=== PATIENT | female | born 1985 | race African-American/Black ===

== ENCOUNTER 2016-11-30 13:49 | Outpatient (CLI) | payer OTHER ==
--- NOTE | 2016-11-30 17:42 | MRI ---
EXAM: MRI CERVICAL SPINE WITHOUT CONTRAST 11/30/16 HISTORY: Cervical disc degeneration. Left sided numbness times a few months. COMPARISON: None. TECHNIQUE: Cervical spine MRI is performed without contrast. Multisequential, multiplanar imaging is performed. FINDINGS: Straightening of the normal cervical lordosis is noted. Cervical spine vertebral body height is main tained. No fracture. No significant STIR hyperintensity to suggest vertebral body edema or ligamento us injury. There is appropriate T1 marrow signal intensity of the cervical vertebrae. Visualized bra in parenchyma, cervicomedullary junction, cervical cord, and the upper thoracic cord has a normal si zed and signal intensity. C2-C3: No significant disc osteophyte complex. No significant central canal stenosis. Neural foramin a are patent. C3-C4: No significant disc osteophyte complex. No significant central canal stenosis. Neural foramin a are patent. C4-C5: No significant disc osteophyte complex. No significant central canal stenosis. Neural foramin a are patent. C5-C6: No significant disc osteophyte complex. No significant central canal stenosis. Neural foramin a are patent. C6-C7: No significant disc osteophyte complex. No significant central canal Stenosis. Neural foramina are patent. C7-T1: No significant disc osteophyte complex. No significant central canal stenosis. Neural foramin a are patent. IMPRESSION: No significant central canal stenosis or foraminal narrowing. POS: [facility]
--- NOTE | 2016-11-30 18:11 | MRI ---
EXAM: MRI LUMBAR SPINE WITHOUT CONTRAST 11/30/16 HISTORY: Lumbar disc degeneration. Left sided numbness times a few months. COMPARISON: 11/07/14. TECHNIQUE: Lumbar spine MRI is performed without intravenous gadolinium administration. Multisequential, multip lanar imaging is performed. FINDINGS: Appropriate T1 marrow signal of the lumbar vertebrae. Lumbar spine vertebral body height is maintain ed. No fracture. No significant STIR hyperintensity to suggest vertebral body edema or ligamentous i njury. Symmetric signal intensity of the psoas muscles. Appropriate signal intensity in the visualized blane d organs. The conus medullaris terminates at the mid L1 level. T12-L1: Adequate disc hydration. No significant central canal stenosis. Neural foramina are patent. L1-L2: Adequate disc hydration. No significant central canal stenosis. Neural foramina are patent. L2-L3: Adequate disc hydration. No significant central canal stenosis. Neural foramina are patent. L3-L4: Adequate disc hydration. No significant central canal stenosis. Neural foramina are patent. L4-L5: Adequate disc hydration. No significant central canal stenosis. Neural foramina are patent. L5-S1: Adequate disc hydration. No significant central canal stenosis. Neural foramina are patent. IMPRESSION: No evidence of central canal stenosis. No significant foraminal narrowing. When compared to the prio r exam, no significant change. POS: [facility]
== END 2016-11-30 13:50 | disposition home or self-care (01) ==
LOC: TBSIIMAG 13:49
PROVIDERS: ATTEND Neurological Surgery
DX: M50.30 Other cervical disc degeneration, unspecified cervical region (principal); M51.36 Other intervertebral disc degeneration, lumbar region
CPT/HCPCS: 72141; 72148

== ENCOUNTER 2017-02-02 10:44 | Outpatient (CLI) | payer OTHER ==
[2017-02-02] MEDS ORDERED: Iopamidol 300 61% 30 ML VIAL ONE (12:29)
--- NOTE | 2017-02-02 13:36 | RAD ---
HYSTEROSALPINGOGRAM: HISTORY: Infertility. Hysterosalpingogram. Z31.41. RADIATION DOSIMETRY: One minutes of fluoroscopy and AK of 214 mGy. TECHNIQUE: Informed consent was obtained from the patient. A speculum was introduced into the vaginal canal. T he cervical os was localized. This cervical os was cleansed using a Betadine solution. HSG catheter was placed without difficulty into the uterine canal. The balloon was deployed. A total of approxi mately 10 mL of sterile iodinated contrast was introduced into the uterine canal. The uterine cavity is unremarkable with no evidence of masses or lesions. Both fallopian tubes are visualized and are patent with bilateral free spill seen. No significant abnormalities noted otherwise. IMPRESSION: Normal hysterosalpingogram with no evidence of abnormality seen in the uterine canal or evidence of f allopian tube obstruction. There is bilateral free spill seen. POS: [facility]
== END 2017-02-02 10:45 | disposition home or self-care (01) ==
LOC: RAD 10:44
PROVIDERS: ATTEND Obstetrics & Gynecology
DX: Z31.41 Encounter for fertility testing (principal)
CPT/HCPCS: 58340; 74740

== ENCOUNTER 2017-05-17 20:22 | Emergency (ER) | payer OTHER ==
[2017-05-17] MEDS ORDERED: Acetaminophen/Codeine 30-300mg Tablet ONE (20:33)
[2017-05-17] MEDS ORDERED: Lidocaine 1% PF 5 ML VIAL ONE (20:33)
== END 2017-05-17 20:58 | disposition home or self-care (01) ==
LOC: SCSER 20:22
DX: L02.412 Cutaneous abscess of left axilla (principal); D64.9 Anemia, unspecified; K50.90 Crohn's disease, unspecified, without complications; I10 Essential (primary) hypertension; K21.9 Gastro-esophageal reflux disease without esophagitis; Z79.899 Other long term (current) drug therapy
CPT/HCPCS: 10060; J2001

== ENCOUNTER 2017-05-19 12:21 | Emergency (ER) | payer OTHER | END 2017-05-19 12:55 | disposition home or self-care (01) | LOC: SCSER 12:21 | DX: Z48.817 Encounter for surgical aftercare following surgery on the skin and subcutaneous tissue (principal); Z48.01 Encounter for change or removal of surgical wound dressing; K50.90 Crohn's disease, unspecified, without complications; I10 Essential (primary) hypertension; K21.9 Gastro-esophageal reflux disease without esophagitis; Z79.899 Other long term (current) drug therapy | CPT/HCPCS: 99282 ==

== ENCOUNTER 2017-11-28 15:56 | Emergency (ER) | payer OTHER ==
[2017-11-28] MEDS ORDERED: Metoclopramide HCl 10 MG/2 ML VIAL ONE (16:39)
[2017-11-28] MEDS ORDERED: diphenhydrAMINE 12.5 MG/5 ML UDCUP ONE (16:39)
[2017-11-28 16:45] LABS: #Basophils 0.1 thou/uL (0.0-0.2); #Eosinphils 0.1 thou/uL (0.0-0.7); #Lymphocytes 1.6 thou/uL (1.20-3.40); #Monocytes 0.4 thou/uL (0.11-0.59); #Neutrophils 3.2 thou/uL (1.40-6.50); %Basophils 2.3 % (0.0-1.0); %Eosinophils 1.2 % (0.0-10.0); %Monocytes 7.1 % (0.0-10.0); %Neutrophils 60.4 % (42.0-75.0); Hemoglobin 12.5 g/dL (12.0-16.0); Mean Corpuscular HGB CONC 33.8 g/dL (32.0-36.0); Mean Corpuscular Hemoglobin 29.7 pg (27.0-31.0); Mean Platelet Volume 8.4 fL (7.4-10.4); Platelet Count 384 thou/uL (130-400); RBC Distribution Width 13.8 % (11.5-14.5); White Blood Cell (WBC) Count 5.3 thou/uL (4.8-10.8)
[2017-11-28] MEDS ORDERED: diphenhydrAMINE 25 MG CAP ONE (16:46)
[2017-11-28 17:04] LABS: Anion Gap 10 mmol/L (10-20); BUN (Urea Nitrogen) 10 mg/dL (7.0-18.7); Calc. Creatinine Clearance 0 mL/min (70-130); Calcium 9.1 mg/dL (7.8-10.44); Carbon Dioxide 24 mmol/L (22-29); Chloride 109 mmol/L (98-107); Estimated GFR-MDRD Greater than 90; Glucose 85 mg/dL (70-105); Potassium 3.7 mmol/L (3.5-5.1); Sodium 139 mmol/L (136-145)
[2017-11-28 17:12] LABS: CKMB 0.9 ng/mL (0-6.6); Troponin I Less than 0.010 ng/mL (< 0.028)
[2017-11-28 18:12] LABS: BHCG - Serum Negative (NEGATIVE); Pregs Control Background? CLEAR/WHITE (CLR/WHITE); Pregs Control Bar Appear? YES (CONTROL BAR)
[2017-11-28] MEDS ORDERED: Ketorolac Tromethamine 30 MG/ML VIAL ONE (18:15)
--- NOTE | 2017-11-28 18:37 | CT ---
CT BRAIN 11/28/17 PROVIDED CLINICAL HISTORY: Headache. FINDINGS: Comparison 07/16/14. The ventricular system appears normal in size and morphology. There is no evidence for intracranial h emorrhage, or mass effect. The extracranial soft tissues and osseous structures demonstrate unremarka ble CT appearance. IMPRESSION: No evidence for intracranial hemorrhage or mass effect. POS: [facility]
--- NOTE | 2017-11-28 18:42 | RAD ---
TWO VIEWS CHEST: 11/28/17 PROVIDED CLINICAL HISTORY: Chest pain. COMPARISON: 03/11/16. The cardiac and mediastinal silhouette is within normal limits. The lungs appear clear. No pleural fl uid or pneumothorax apparent. IMPRESSION: No evidence for an acute cardiopulmonary process. POS: [facility]
== END 2017-11-28 18:36 | disposition home or self-care (01) ==
LOC: ERS 15:56
DX: R51 Headache (principal); R07.9 Chest pain, unspecified; I10 Essential (primary) hypertension; K21.9 Gastro-esophageal reflux disease without esophagitis; D64.9 Anemia, unspecified; Z79.899 Other long term (current) drug therapy
CPT/HCPCS: 36415; 70450; 71046; 80048; 82553; 84484; 84703; 85025; 93005; 96365; 96375; J1885; J2765

== ENCOUNTER 2018-06-22 19:35 | Emergency (ER) | payer OTHER ==
[2018-06-22] MEDS ORDERED: Lorazepam 2 MG/ML VIAL ONE (20:17)
[2018-06-22] MEDS ORDERED: Ondansetron PF 4 MG/2 ML Vial ONE (20:17)
[2018-06-22 20:25] LABS: #Basophils 0.1 thou/uL (0.0-0.2); #Eosinphils 0.1 thou/uL (0.0-0.7); #Lymphocytes 2.6 thou/uL (1.20-3.40); #Monocytes 0.9 thou/uL (0.11-0.59); #Neutrophils 8.9 thou/uL (1.40-6.50); %Basophils 1.2 % (0.0-1.0); %Eosinophils 0.9 % (0.0-10.0); %Lymphocytes 20.2 % (21.0-51.0); %Monocytes 7.2 % (0.0-10.0); %Neutrophils 70.5 % (42.0-75.0); Hemoglobin 12.1 g/dL (12.0-16.0); Mean Corpuscular HGB CONC 33.7 g/dL (32.0-36.0); Mean Corpuscular Hemoglobin 28.6 pg (27.0-31.0); Mean Corpuscular Volume 85.1 fL (78.0-98.0); Mean Platelet Volume 8.5 fL (7.4-10.4); Platelet Count 410 thou/uL (130-400); RBC Distribution Width 14.8 % (11.5-14.5); Red Blood Cell (RBC) Count 4.22 mill/uL (4.20-5.40); White Blood Cell (WBC) Count 12.6 thou/uL (4.8-10.8)
[2018-06-22 20:45] LABS: Anion Gap 11 mmol/L (10-20); BUN (Urea Nitrogen) 12 mg/dL (7.0-18.7); Calc. Creatinine Clearance 0 mL/min (70-130); Calcium 9.2 mg/dL (7.8-10.44); Carbon Dioxide 29 mmol/L (22-29); Chloride 101 mmol/L (98-107); Estimated GFR-MDRD Greater than 90; Glucose 100 mg/dL (70-105); Potassium 3.4 mmol/L (3.5-5.1); Sodium 138 mmol/L (136-145)
--- NOTE | 2018-06-22 20:46 | CT ---
CT OF THE BRAIN WITHOUT CONTRAST: 06/22/18 INDICATION: History of dizziness and vertigo with nausea. COMPARISON: Prior exam dated 11/28/17. FINDINGS: No acute infarct, hemorrhage, or hydrocephalus is present. Septum pellucidum and third ventricle are midline. The skull and extracranial soft tissues are unremarkable appearing. IMPRESSION: No acute intracranial abnormality. POS: [facility]
[2018-06-22 21:58] LABS: Bilirubin Negative (Negative); Blood, Urine Moderate (Negative); Clarity CLEAR (Clear); Glucose, Urine (Dipstick) Negative (Negative); Leukocyte Negative (Negative); Nitrite Negative (Negative); Protein, Urine (Dipstick) Negative (Neg-Trace); Specific Gravity, Urine 1.012 (1.002-1.036); Urobilinogen 0.2 mg/dL (0.2-1.0); pH, Urine 7.5 (5.0-9.0)
[2018-06-22 22:00] LABS: Pregnancy Test - Urine (BHCG) Negative (Negative); Pregu Control Background? CLEAR/WHITE (CLR/WHITE); Pregu Control Bar Appear? YES (CONTROL BAR); Specific Gravity 1.012 (1.002-1.036)
[2018-06-22 22:03] LABS: Bacteria/HPF 1+ HPF (None Seen); Hyaline Casts/LPF 0-3 HYALINE CAST LPF (0-3 Hyaline); Pathc Cast-AUWi Flag 0.27 (0-2.49); Squamous Epithelial 0-3 HPF (0-3); WBC/HPF 0-3 HPF (0-3)
[2018-06-22] MEDS ORDERED: Acetaminophen 325 MG TAB ONE (22:16)
[2018-06-22] MEDS ORDERED: Meclizine HCl 25 MG TAB ONE (22:16)
== END 2018-06-23 00:10 | disposition home or self-care (01) ==
LOC: ERS 19:35
DX: R42 Dizziness and giddiness (principal); I10 Essential (primary) hypertension; D64.9 Anemia, unspecified; K21.9 Gastro-esophageal reflux disease without esophagitis; Z79.899 Other long term (current) drug therapy
CPT/HCPCS: 70450; 81003; 81015; 81025; 85025; 96361; 96374; 96375; J2060; J2405; J8499

== ENCOUNTER 2018-06-29 18:45 | Emergency (ER) | payer OTHER ==
[2018-06-29] MEDS ORDERED: Promethazine HCl 25 MG/ML VIAL ONE (19:47)
[2018-06-29 21:14] LABS: Bilirubin Negative (Negative); Blood, Urine Trace (Negative); Clarity CLOUDY (Clear); Glucose, Urine (Dipstick) Negative (Negative); Leukocyte Negative (Negative); Nitrite Negative (Negative); Protein, Urine (Dipstick) Negative (Neg-Trace); Specific Gravity, Urine 1.012 (1.002-1.036); Urobilinogen 0.2 mg/dL (0.2-1.0)
[2018-06-29 21:15] LABS: Bacteria/HPF None Seen HPF (None Seen); Hyaline Casts/LPF 0-3 HYALINE CAST LPF (0-3 Hyaline); Pathc Cast-AUWi Flag 0.13 (0-2.49); RBC/HPF 0-3 HPF (0-3); Squamous Epithelial 0-3 HPF (0-3); WBC/HPF 0-3 HPF (0-3)
== END 2018-06-29 21:40 | disposition home or self-care (01) ==
LOC: ERS 18:45
DX: R42 Dizziness and giddiness (principal); R11.2 Nausea with vomiting, unspecified; I10 Essential (primary) hypertension; K21.9 Gastro-esophageal reflux disease without esophagitis; D64.9 Anemia, unspecified; Z79.899 Other long term (current) drug therapy
CPT/HCPCS: 81003; 81015; 96372; J2550

== ENCOUNTER 2018-07-07 17:58 | Observation (INO) | payer OTHER ==
[~2018-07-07 17:58] MED LIST: ISOVUE-370 76%-LOCM 1 ML ONE
[2018-07-07 19:24] LABS: #Basophils 0.1 thou/uL (0.0-0.2); #Lymphocytes 2.4 thou/uL (1.20-3.40); #Monocytes 0.5 thou/uL (0.11-0.59); #Neutrophils 6.1 thou/uL (1.40-6.50); %Basophils 1.1 % (0.0-1.0); %Eosinophils 0.2 % (0.0-10.0); %Lymphocytes 26.4 % (21.0-51.0); %Monocytes 5.7 % (0.0-10.0); %Neutrophils 66.6 % (42.0-75.0); Hemoglobin 12.8 g/dL (12.0-16.0); Mean Corpuscular HGB CONC 35.5 g/dL (32.0-36.0); Mean Corpuscular Hemoglobin 29.6 pg (27.0-31.0); Mean Corpuscular Volume 83.4 fL (78.0-98.0); Mean Platelet Volume 8.7 fL (7.4-10.4); Platelet Count 344 thou/uL (130-400); RBC Distribution Width 14.6 % (11.5-14.5); Red Blood Cell (RBC) Count 4.33 mill/uL (4.20-5.40); White Blood Cell (WBC) Count 9.1 thou/uL (4.8-10.8)
[2018-07-07] MEDS ORDERED: Ondansetron PF 4 MG/2 ML Vial ONE (19:30)
[2018-07-07 19:44] LABS: ALT (SGPT) 17 U/L (8-55); AST (SGOT) 12 U/L (5-34); Albumin 3.8 g/dL (3.5-5.0); Alkaline Phosphatase 49 U/L (40-150); Anion Gap 13 mmol/L (10-20); BUN (Urea Nitrogen) 10 mg/dL (7.0-18.7); Bilirubin, Total 0.3 mg/dL (0.2-1.2); Calc. Creatinine Clearance 0 mL/min (70-130); Calcium 9.2 mg/dL (7.8-10.44); Carbon Dioxide 22 mmol/L (22-29); Chloride 106 mmol/L (98-107); Estimated GFR-MDRD Greater than 90; Globulin 3.3 g/dL (2.4-3.5); Glucose 94 mg/dL (70-105); Potassium 3.3 mmol/L (3.5-5.1); Protein, Total 7.1 g/dL (6.0-8.3); Sodium 138 mmol/L (136-145)
[2018-07-07 20:43] LABS: Bilirubin Negative (Negative); Blood, Urine Negative (Negative); Clarity CLOUDY (Clear); Glucose, Urine (Dipstick) Negative (Negative); Leukocyte Negative (Negative); Nitrite Negative (Negative); Protein, Urine (Dipstick) Negative (Neg-Trace); Specific Gravity, Urine 1.007 (1.002-1.036); Urobilinogen 0.2 mg/dL (0.2-1.0)
[2018-07-07 20:52] LABS: BHCG - Serum Negative (NEGATIVE); Pregs Control Background? CLEAR/WHITE (CLR/WHITE); Pregs Control Bar Appear? YES (CONTROL BAR)
[2018-07-07] MEDS ORDERED: Metoclopramide HCl 10 MG/2 ML VIAL ONE (21:22)
--- NOTE | 2018-07-07 21:59 | CT ---
Contrast-enhanced images abdomen pelvis history: Right upper quadrant pain. Contrast-enhanced CT images of the abdomen and pelvis obtained. Images are obtained after administrat ion of IV contrast. Oral contrast was not given.7 The lung bases are unremarkable. No evidence of free intraperitoneal air seen. The liver and spleen are unremarkable. The gallbladder is unremarkable. Pancreas unremarkable. Adrenal glands and kidneys unremarkable. No dilated loops of bowel seen. A moderate amount of stool seen in the colon. No evidence of periaortic lymphadenopathy seen. Right ovarian cyst or cystic lesion is present. Corpus luteal cyst seen in the left ovary. IMPRESSION: No significant evidence of acute intra-abdominal or pelvic pathology seen.
[2018-07-07] MEDS ORDERED: Acetaminophen 650 MG Suppository PR PRN (22:41)
[2018-07-07] MEDS ORDERED: Acetaminophen 325 MG TAB PO PRN ×2 (22:41→23:22)
[2018-07-07] MEDS ORDERED: Ondansetron ODT 4 MG TAB PO PRN (22:41)
[2018-07-07 22:59] LABS: Medtox Reader # READER 1
[2018-07-07 23:00] LABS: Medtox Control Line Valid? VALID (VALID)
[2018-07-07 23:01] LABS: Amphetamine Not Detected (NotDetected); Barbiturates Screen Not Detected (NotDetected); Benzodiazepine Screen Not Detected (NotDetected); Cocaine Metabolite Screen Not Detected (NotDetected); Methadone Not Detected (NotDetected); Methamphetamine Not Detected (NotDetected); Opiate Screen Not Detected (NotDetected); Oxycodone Screen Not Detected (NotDetected); Phencyclidine (PCP) Not Detected (NotDetected); THC/Cannabinoid Screen Not Detected (NotDetected); Tricyclic Screen Not Detected (NotDetected)
[2018-07-07] MEDS ORDERED: Ondansetron ODT 4 MG TAB SL PRN (23:22)
[2018-07-07] MEDS ORDERED: Ondansetron PF 4 MG/2 ML Vial IVP PRN (23:22)
--- NOTE | 2018-07-08 00:01 | HP ---
PRIMARY CARE DOCTOR: Dr. Padmini Awad. CODE STATUS: Full code. TIME OF EVALUATION: 10:40 p.m. CHIEF COMPLAINT: Nausea, vomiting, and right upper quadrant pain. HISTORY OF PRESENT ILLNESS: This is a 33-year-old female patient with past medical history of gallstones, anemia, Crohn's, hypertension, GERD, and sciatica. The patient came to the hospital after having nausea and vomiting. The symptoms were moderate, associated with right upper quadrant pain. Symptoms are exacerbated with food, and no significant alleviating symptoms. All her medications given in the ER. REVIEW OF SYSTEMS: CONSTITUTIONAL: The patient has no fever. The patient has chills, generalized weakness. RESPIRATORY: No cough, sputum production, or shortness of breath. CARDIOVASCULAR: No chest pain or palpitation. GASTROINTESTINAL: The patient had nausea and vomiting. No diarrhea. Right upper quadrant pain. CENTRAL NERVOUS SYSTEM: No dizziness, headache, or feeling lightheaded. GENITOURINARY: No burning on urination. EXTREMITIES: No leg swelling. All other systems were reviewed and negative except for the findings mentioned above. PAST MEDICAL HISTORY: As mentioned in the HPI. PAST SURGICAL HISTORY: Colonoscopy x3, appendectomy, carpal tunnel syndrome. PSYCHIATRIC HISTORY: No previous psych history. SOCIAL HISTORY: The patient drinks socially. Denied drug use. No smoking history. FAMILY HISTORY: Noncontributory to current presentation. ALLERGIES: KNOWN ALLERGIES TO CYMBALTA. REPORTED MEDICATIONS: Hydrochlorothiazide, prednisolone, and Zofran. PHYSICAL EXAMINATION: VITAL SIGNS: On presentation, heart rate 81, respiratory rate was 20, oxygen saturation was 100% on room air, blood pressure 132/92 with temperature 99. GENERAL APPEARANCE: The patient is alert, oriented, not in acute distress. HEENT: Eyes; normal conjunctivae. Moist oral mucosa. Anicteric. No JVD. RESPIRATORY: Bilateral air entry. No rales. No wheezes. Symmetric expansion. CARDIOVASCULAR: Normal rate, regular rhythm. No murmurs. No gallop. No edema. ABDOMEN: Diminished, soft. Normal bowel sounds. The patient has right upper quadrant pain that has worsened with deep inspiration. MUSCULOSKELETAL: Baseline range of motion and strength. No tenderness. SKIN: Warm and intact. No pallor. No rash. No redness. VASCULAR: Peripheral pulses are present. Capillary refill seems to be intact. NEUROLOGIC: No evidence of any new focal weakness. Cranial nerves seems to be intact. PSYCHIATRIC: The patient is in good mood. No anxiety. Optimal judgment. IMAGING STUDIES: EKG was reviewed. The patient has normal sinus rhythm with a rate of 71, WI 174, QRS 88, QT corrected 404. Abdomen and pelvis CT was done and showed no significant evidence of acute intraabdominal or pelvic pathology. LABORATORY DATA: Labs were done. The patient has white count 9.1, hemoglobin 12.8, MCV 83.4, platelet count 344. Chemistry; sodium 138, potassium 3.3, chloride 106, carbon dioxide 22, anion gap 13, BUN 10, creatinine 0.7. GFR greater than 90. LFTs were negative. Troponin was negative. Urine was negative and toxicology was negative. ASSESSMENT AND PLAN: The patient will be placed in the hospital with following medical problems; 1. Intractable nausea and vomiting, associated with right upper quadrant pain. The patient has chills. CAT scan did not show any significant abnormalities. The patient has a history of gallstones, so we will do right upper quadrant ultrasound to rule out acute cholecystitis and to see the size of the CBD. For now, we will treat symptomatically. 2. Controlled hypertension. Reconcile home medications. We will adjust treatment as needed. 3. Reported history of Crohn's disease. CT abdomen is normal. This does not seem to be an acute problem. 4. Deep venous thrombosis prophylaxis. Job ID: [id number]
[2018-07-08] MEDS: Sodium Chloride 0.9% 1,000 ML IV SCH ×4 (01:30→18:01)
[2018-07-08] MEDS: Ondansetron PF 4 MG/2 ML Vial IVP PRN ×4 (04:55→18:07)
[2018-07-08 05:13] LABS: #Basophils 0.1 thou/uL (0.0-0.2); #Eosinphils 0.1 thou/uL (0.0-0.7); #Lymphocytes 2.8 thou/uL (1.20-3.40); #Monocytes 0.9 thou/uL (0.11-0.59); #Neutrophils 5.7 thou/uL (1.40-6.50); %Basophils 1.2 % (0.0-1.0); %Eosinophils 0.8 % (0.0-10.0); %Lymphocytes 29.1 % (21.0-51.0); %Monocytes 8.9 % (0.0-10.0); Hemoglobin 10.8 g/dL (12.0-16.0); Mean Corpuscular Hemoglobin 29.4 pg (27.0-31.0); Platelet Count 318 thou/uL (130-400); RBC Distribution Width 14.5 % (11.5-14.5); Red Blood Cell (RBC) Count 3.66 mill/uL (4.20-5.40); White Blood Cell (WBC) Count 9.6 thou/uL (4.8-10.8)
[2018-07-08 05:40] LABS: Anion Gap 10 mmol/L (10-20); BUN (Urea Nitrogen) 8 mg/dL (7.0-18.7); Calc. Creatinine Clearance 168 mL/min (70-130); Carbon Dioxide 22 mmol/L (22-29); Chloride 109 mmol/L (98-107); Estimated GFR-MDRD Greater than 90; Glucose 82 mg/dL (70-105); Potassium 3.4 mmol/L (3.5-5.1); Sodium 138 mmol/L (136-145)
--- NOTE | 2018-07-08 07:20 | ULT ---
GALLBLADDER ULTRASOUND: Date: 07/08/18 COMPARISON: 05/24/15. INDICATION: Right abdominal pain. Clinical concern for cholecystitis. FINDINGS: There are foci of increased echogenicity of the gallbladder lumen. Gallbladder wall is normal in cosme leonor. No focal hepatic lesion. No ascites. Common duct is normal measuring 3 mm in diameter. Rivera's sign reported as negative by sonography. IMPRESSION: Gravel-like cholelithiasis/gallbladder sludge. There is no sonographic evidence to indicate acute cho lecystitis. POS: [facility]
[2018-07-08] MEDS: Enoxaparin Sodium 40 MG/0.4 ML SYRINGE SC SCH (09:40)
[2018-07-08] MEDS ORDERED: Morphine 4 MG/ML VIAL SLOW IVP PRN (10:58)
[2018-07-08] MEDS ORDERED: Morphine 4 MG/ML VIAL SLOW IVP SCH (11:00)
[2018-07-08] MEDS ORDERED: Sodium Chloride 0.9% (PF) 10 ML VIAL FS PRN (11:01)
[2018-07-08] MEDS ORDERED: Pantoprazole 40 MG VIAL IVP SCH (11:30)
[2018-07-08] MEDS ORDERED: Acetaminophen 1,000 MG in Premix Bag 1 BAG IVPB PRN (13:45)
[2018-07-08] MEDS ORDERED: Ketorolac Tromethamine 30 MG/ML VIAL IVP PRN (13:45)
[2018-07-08] MEDS ORDERED: Acetaminophen 500 MG TAB PO PRN (13:45)
[2018-07-08] MEDS ORDERED: Ketorolac Tromethamine 30 MG/ML VIAL IVP SCH (14:00)
[2018-07-08] MEDS ORDERED: Acetaminophen 1,000 MG in Premix Bag 1 BAG IVPB SCH (14:30)
--- NOTE | 2018-07-08 16:08 | PDOC.PN ---
- Subjective Encounter Start Date: 07/08/18 Encounter Start Time: 16:00 Subjective: f/u for RUQ abd pain suspected due to cholelithiasis/cholecystitis. -: Currently receiving Toradol/Morphine/Levaquin. Plan for lap [place] -: in am. - Objective Resuscitation Status - Order Detail: 07/07/18 22:41 Resuscitation Status Routine Resuscitation Status: FULL: Full Resuscitation MAR Reviewed: Yes Vital Signs & Weight: Vital Signs (12 hours) Temp Pulse Resp BP Pulse Ox 07/08/18 11:07 99.0 F 73 15 117/75 99 07/08/18 07:08 98.8 F 70 15 118/71 98 Weight Weight 180 lb I&O: 07/07/18 07/08/18 07/09/18 06:59 06:59 06:59 Intake Total 1115 Output Total 1000 900 Balance 115 -900 Result Diagrams: 07/08/18 04:48 07/08/18 04:48 Additional Labs: Laboratory Tests 07/07/18 07/07/18 07/07/18 19:13 19:13 19:13 Hgb 12.8 Potassium 3.3 L Lipase 37 Serum , Qual 07/07/18 20:34 Hgb Potassium Lipase Serum , Qual Negative Radiology Reviewed by me: Yes (ABD sono - cholelithiasis, sludge) EKG Reviewed by me: Yes (Tele - SR) Phys Exam - Physical Examination Constitutional: NAD HEENT: PERRLA, sclera anicteric, oral pharynx no lesions Neck: no nodes, no JVD, supple, full ROM Respiratory: no wheezing, no rales, no rhonchi, clear to auscultation bilateral Cardiovascular: RRR, no significant murmur, no rub, gallop TTP in RUQ Gastrointestinal: soft, no distention, positive bowel sounds Musculoskeletal: no edema, pulses present Neurological: normal sensation, moves all 4 limbs Psychiatric: A&O x 3 Skin: normal turgor, cap refill <2 seconds Dx/Plan (1) Cholelithiasis Code(s): K80.20 - CALCULUS OF GALLBLADDER W/O CHOLECYSTITIS W/O OBSTRUCTION Status: Acute Qualifiers: Cholelithiasis location: gallbladder Comment: Plan for lap [place] in am, pain control with Morphine Sulfate/Toradol (2) Cholecystitis, acute Code(s): K81.0 - ACUTE CHOLECYSTITIS Status: Acute Comment: Suspected, continue Levaquin, see #1 (3) Hypokalemia Code(s): E87.6 - HYPOKALEMIA Status: Acute Comment: KCL supplementation, serial K+ (4) Nausea & vomiting Code(s): R11.2 - NAUSEA WITH VOMITING, UNSPECIFIED Status: Acute Comment: Improved, Zofran 8mg IV q6h prn - Plan continue antibiotics, out of bed/ambulate, DVT proph w/SCDs Stable currently -: Continue IVF's -: Appreciate Gen Surgery assistance -: NPO after MN -: Continue Levaquin * .
--- NOTE | 2018-07-08 16:25 | HP ---
HISTORY OF PRESENT ILLNESS: Marry Hussein, 33-year-old black female, admitted to observation by hospitalist service for right upper quadrant pain. The patient has been having this pain intermittently for the past 25 years. She has had previous ultrasounds that had demonstrated gallstones. She states that no body has told her to have her gallbladder removed. She has had ultrasounds of her gallbladder on March 20, 2014, that was normal. On February 06, 2015, revealing a contracted gallbladder and a more optimal exam recommended, and then on 05/24/2015, she had another gallbladder ultrasound noting a small gallbladder polyp. On this occasion, 07/08/2018, ultrasound of her gallbladder reveals sludge and gallstones. Bile duct caliber is normal without dilatation. Liver function tests are normal. ALLERGIES: DULOXETINE. HABITS: Tobacco, none. Alcohol, rarely. MEDICATIONS: Hydrochlorothiazide, Humira, Tylenol, lisinopril, Protonix. PAST SURGICAL HISTORY: Colonoscopy in the past, appendectomy, carpal tunnel. PAST MEDICAL HISTORY: History of gallstones, anemia, Crohn's, hypertension, GERD, sciatica. PHYSICAL EXAMINATION: VITAL SIGNS: Height 5 feet 2 inches, weight 180 pounds, 32 BMI. Temperature 99, heart rate 73, blood pressure 117/55. HEAD, EYES, EARS, NOSE, AND THROAT: Unremarkable. LUNGS: Clear to auscultation. CARDIAC: Rhythm without murmur or gallop. ABDOMEN: Soft. Tenderness in right upper quadrant with guarding. EXTREMITIES: Unremarkable. Liver function tests are normal. LABORATORY DATA: Hemoglobin 10, white count 9. Basic metabolic profile normal. Lipase is normal. test negative. ASSESSMENT/PLAN: 1. Cholecystitis, cholelithiasis. Recommend laparoscopic video cholecystectomy. Risk of infection, bleeding, visceral and biliary injury explained, she consents. 2. Crohn's. 3. Gastroesophageal reflux disease. Job ID: [id number]
[2018-07-08] MEDS: Pantoprazole 40 MG VIAL IVP SCH (20:04)
[2018-07-09] MEDS: Ondansetron PF 4 MG/2 ML Vial IVP PRN ×2 (00:04→06:46)
[2018-07-09] MEDS: Sodium Chloride 0.9% 1,000 ML IV SCH ×2 (02:42→09:48)
[2018-07-09] MEDS: Pantoprazole 40 MG VIAL IVP SCH (09:46)
[2018-07-09] MEDS: Enoxaparin Sodium 40 MG/0.4 ML SYRINGE SC SCH (09:46)
[2018-07-09 12:11] VITALS: BMI 32.4
[2018-07-09] MEDS ORDERED: Ondansetron PF 4 MG/2 ML Vial ONE ×2 (13:16→16:54)
[2018-07-09] MEDS ORDERED: Fentanyl 100 MCG/2 ML VIAL ONE ×2 (13:16→14:25)
[2018-07-09] MEDS ORDERED: Famotidine/PF 20 mg/2ml Vial ONE (13:16)
[2018-07-09] MEDS ORDERED: Bupivacaine HCl 0.5%/Epinephrine 1:200,000/PF 30 ml Vial ONE (13:17)
[2018-07-09] MEDS ORDERED: Levofloxacin 500 mg/D5W 100 ml Premix Bag ONE (13:29)
[2018-07-09] MEDS ORDERED: Ibuprofen 600 MG TAB PO PRN (13:30)
[2018-07-09] MEDS ORDERED: traMADol HCl 50 MG TAB PO PRN ×2 (13:30)
[2018-07-09] MEDS ORDERED: Promethazine HCl 25 MG/ML VIAL SLOW IVP PRN (13:55)
[2018-07-09] MEDS ORDERED: Promethazine HCl 25 MG/ML VIAL IM PRN (13:55)
[2018-07-09] MEDS ORDERED: Meperidine HCl/PF 25 MG/ML VIAL SLOW IVP PRN (13:55)
[2018-07-09] MEDS ORDERED: Ondansetron HCl/PF 4 MG/2 ML Vial IVP PRN (13:55)
--- NOTE | 2018-07-09 14:38 | OP ---
DATE OF PROCEDURE: 07/09/2018 PREOPERATIVE DIAGNOSES: Cholecystitis, cholelithiasis. POSTOPERATIVE DIAGNOSES: Cholecystitis, cholelithiasis. PROCEDURE PERFORMED: Laparoscopic video cholecystectomy. ANESTHESIA: General, local 0.5% Marcaine with epinephrine 30 mL total volume used. DESCRIPTION OF PROCEDURE: The patient was taken to the operating room under general anesthesia. Abdomen was prepared with ChloraPrep and draped in routine fashion. Local anesthetic was infiltrated in the skin and subcutaneous tissue about each port site. Infraumbilical incision was made. Pneumoperitoneum to 15 mmHg obtained of Veress needle, replaced with a 5 port, video laparoscope inserted. Right subxiphoid incision was made and 11 port placed, right subcostal incision was made in midclavicular and anterior axillary line, a 5 port was placed. Liver appeared to be normal. Gallbladder fundus grasped at the cephalad. Omental adhesions were taken down. Infundibulum grasped and reflected laterally. Cystic artery and duct dissected free, critical view obtained. Cystic artery and duct double clipped proximally, divided. Gallbladder dissected free from liver bed. Obtaining good hemostasis prior to division of the final femoral attachments. Good hemostasis assured. Her gallbladder and stone contents removed, submitted to Pathology. Good hemostasis ensured. Irrigant and pneumoperitoneum evacuated. All instruments were removed. All skin incisions were approximated with interrupted subdermal 4-0 Monocryl and [place] glue applied. Job ID: [id number]
[2018-07-09 15:29] VITALS: BP 131/77; TEMP 98.4
[2018-07-09] MEDS ORDERED: Ketorolac Tromethamine 30 MG/ML VIAL ONE (16:54)
[2018-07-09] MEDS ORDERED: Glycopyrrolate 0.2 MG/ML 5 ML SYRINGE ONE (16:54)
[2018-07-09] MEDS ORDERED: Lidocaine 1% PF 5 ML VIAL ONE (16:54)
[2018-07-09] MEDS ORDERED: PROPOFOL 200 MG/20 ML VIAL ONE (16:54)
[2018-07-09] MEDS ORDERED: Rocuronium Bromide 10 MG/ML (10ML VIAL) ONE (16:54)
[2018-07-09] MEDS ORDERED: Metoclopramide HCl 10 MG/2 ML VIAL ONE (16:54)
[2018-07-09] MEDS ORDERED: Dexamethasone 20 MG/5 ML VIAL ONE (16:54)
--- NOTE | 2018-07-09 20:08 | DIS ---
DATE OF ADMISSION: 07/07/2018 DATE OF DISCHARGE: 07/09/2018 PRIMARY CARE PROVIDER: Padmini Awad MD DISCHARGE DIAGNOSES: 1. Cholelithiasis with acute cholecystitis. 2. Status post laparoscopic cholecystectomy on 07/09/2018. 3. Hypokalemia, resolved. 4. Nausea and vomiting secondary to #1, resolved. CONSULTATION: Francisco Do MD with General Surgery Service. PERTINENT LAB AND X-RAY FINDINGS: Potassium ranged between 3.3 to 3.4. Lipase 37. Serum beta-hCG negative on 07/07/2018. CBC showed a hemoglobin ranged between 12.8 to 10.8. Urine drug screen dated 07/07/2018, negative. CT of the abdomen and pelvis dated 07/07/2018, showed no acute intraabdominal process. Abdominal ultrasound dated 07/08/2018, showed cholelithiasis with gallbladder sludge. HOSPITAL COURSE: The patient was observed on the telemetry unit after initially presenting with right upper quadrant abdominal pain with associated nausea and vomiting. The patient underwent general evaluation including CT imaging of the abdomen and pelvis, which showed no acute process. Right upper quadrant ultrasound did reveal evidence of gallbladder sludge and cholelithiasis. At which point, General Surgery evaluated the patient. The patient proceeded with laparoscopic video-assisted cholecystectomy on 07/09/2018, without complication. The patient received general supportive management throughout the hospital course with stable vital signs. Overall, the patient did remain clinically stable during the hospital course and tolerated regular oral intake. I have examined the patient at the time of discharge and discussed followup instructions. The patient verbalized understanding and agreement ready for discharge on 07/09/2018. DISCHARGE MEDICATIONS: 1. Tramadol 50 mg 1 tablet p.o. q.6 hours p.r.n. pain. 2. Protonix 40 mg p.o. daily. 3. Lisinopril 5 mg p.o. daily. 4. Hydrochlorothiazide 25 mg p.o. daily. 5. Humira 40 mg subcutaneously every 14 days. FOLLOWUP: The patient may follow up with her primary care provider, Dr. Padmini Awad, within 7 days of discharge. The patient will follow up with Dr. Francisco Do within 2 to 3 weeks after discharge. CONDITION ON DISCHARGE: Stable. ACTIVITY: Ad-jeromy. DIET: Regular. CODE STATUS: Full. DISPOSITION: To home 07/09/2018. Job ID: [id number]
== END 2018-07-09 19:16 | disposition home or self-care (01) ==
LOC: ERS 17:58 → 2SW 23:13
PROVIDERS: ADMIT Hospitalist; ATTEND Hospitalist
PROC: 0FT44ZZ Resection of Gallbladder, Percutaneous Endoscopic Approach (ICD-10-PCS; principal; 2018-07-09)
DX: K80.12 Calculus of gallbladder with acute and chronic cholecystitis without obstruction (principal); E87.6 Hypokalemia; K21.9 Gastro-esophageal reflux disease without esophagitis; K50.90 Crohn's disease, unspecified, without complications; I10 Essential (primary) hypertension; Z79.899 Other long term (current) drug therapy; Z88.8 Allergy status to other drugs, medicaments and biological substances
CPT/HCPCS: 36415; 74177; 76705; 80048; 80053; 80306; 81003; 83690; 84484; 84703; 85025; 88304; 93005; 96361; 96365; 96367; 96372; 96375; 96376; C9113; G0378; J0131; J0670; J1100; J1650; J1885; J1956; J2001; J2270; J2405; J2704; J2765; J3010; Q9966; S0028

== ENCOUNTER 2018-07-12 16:37 | Emergency (ER) | payer OTHER ==
[2018-07-12 18:05] LABS: #Eosinphils 0.2 thou/uL (0.0-0.7); #Lymphocytes 2.4 thou/uL (1.20-3.40); #Monocytes 0.8 thou/uL (0.11-0.59); #Neutrophils 6.2 thou/uL (1.40-6.50); %Basophils 0.4 % (0.0-1.0); %Eosinophils 1.6 % (0.0-10.0); %Lymphocytes 24.9 % (21.0-51.0); %Monocytes 8.1 % (0.0-10.0); Hemoglobin 13.6 g/dL (12.0-16.0); Mean Corpuscular HGB CONC 35.3 g/dL (32.0-36.0); Mean Corpuscular Hemoglobin 29.6 pg (27.0-31.0); Mean Corpuscular Volume 83.9 fL (78.0-98.0); Mean Platelet Volume 8.4 fL (7.4-10.4); Platelet Count 429 thou/uL (130-400); RBC Distribution Width 15.2 % (11.5-14.5); Red Blood Cell (RBC) Count 4.59 mill/uL (4.20-5.40); White Blood Cell (WBC) Count 9.5 thou/uL (4.8-10.8)
[2018-07-12 18:07] LABS: BHCG - Serum Negative (NEGATIVE); Pregs Control Background? CLEAR/WHITE (CLR/WHITE); Pregs Control Bar Appear? YES (CONTROL BAR)
[2018-07-12 18:20] LABS: ALT (SGPT) 32 U/L (8-55); AST (SGOT) 14 U/L (5-34); Albumin 4.1 g/dL (3.5-5.0); Alkaline Phosphatase 57 U/L (40-150); Anion Gap 13 mmol/L (10-20); BUN (Urea Nitrogen) 7 mg/dL (7.0-18.7); Bilirubin, Total 0.5 mg/dL (0.2-1.2); Calc. Creatinine Clearance 0 mL/min (70-130); Calcium 9.6 mg/dL (7.8-10.44); Carbon Dioxide 25 mmol/L (22-29); Chloride 102 mmol/L (98-107); Estimated GFR-MDRD Greater than 90; Globulin 3.9 g/dL (2.4-3.5); Glucose 100 mg/dL (70-105); Magnesium 2.2 mg/dL (1.6-2.6); Potassium 3.3 mmol/L (3.5-5.1); Sodium 137 mmol/L (136-145)
[2018-07-12 18:40] LABS: Bilirubin Negative (Negative); Blood, Urine Negative (Negative); Clarity CLEAR (Clear); Glucose, Urine (Dipstick) Negative (Negative); Leukocyte Negative (Negative); Nitrite Negative (Negative); Protein, Urine (Dipstick) Negative (Neg-Trace); Specific Gravity, Urine 1.003 (1.002-1.036); pH, Urine 6.5 (5.0-9.0)
[2018-07-12] MEDS ORDERED: Potassium Chloride 20 MEQ TAB PO SCH (18:45)
== END 2018-07-12 19:11 | disposition home or self-care (01) ==
LOC: ERS 16:37
DX: E87.6 Hypokalemia (principal); I10 Essential (primary) hypertension; K21.9 Gastro-esophageal reflux disease without esophagitis; D64.9 Anemia, unspecified; K50.00 Crohn's disease of small intestine without complications; Z79.899 Other long term (current) drug therapy
CPT/HCPCS: 36415; 36416; 80053; 81003; 83605; 83735; 84703; 85025; 87040; 93005

== ENCOUNTER 2018-07-31 15:49 | Outpatient (CLI) | payer OTHER ==
--- NOTE | 2018-07-31 16:37 | RAD ---
TWO VIEWS CHEST: 07/31/18 HISTORY: Small right pleural effusion on recent CT scan exam. COMPARISON: Chest x-ray on 11/28/[address] abdomen on 07/07/18. FINDINGS: The cardiac silhouette and pulmonary vasculature are within normal limits. The lungs remain clear. [place] rgical clips again overlie the right upper quadrant. There has been no interval change from prior bekah dy. IMPRESSION: No acute cardiopulmonary process. No findings to suggest a pleural effusion. POS: [facility]
== END 2018-07-31 15:50 | disposition home or self-care (01) ==
LOC: SCSRAD 15:49
PROVIDERS: ATTEND Internal Medicine
DX: J90 Pleural effusion, not elsewhere classified (principal)
CPT/HCPCS: 71046

== ENCOUNTER 2021-02-02 13:18 | Outpatient (CLI) | payer BC | END 2021-02-02 13:19 | disposition home or self-care (01) | LOC: BICULT 13:18 | PROVIDERS: ATTEND Internal Medicine | DX: E01.0 Iodine-deficiency related diffuse (endemic) goiter (principal) | CPT/HCPCS: 76536 ==